=== PATIENT | male | born 1955 | race Caucasian/White ===

== ENCOUNTER 2018-11-12 19:15 | Emergency (ER) | payer OTHER ==
[~2018-11-12] VITALS: Ht 193 cm; Wt 113.4 kg
--- NOTE | 2018-11-12 21:02 | NUR ---
I WAS CALLED IN AT THE OF THIS PT TO HELP SORT OUT PROCEDURE FOR NOTIFYING NEXT OF [facility]. THIS PT WAS INMATE AT [facility], SO I SUGGESTED WE FIND OUT THEIR POLICY BEFORE MOVING ON. THEY SAID IT IS SOP FOR THEM TO DO NOTIFICATION. OFFICERS WHO CAME TO ESCORT INMATE SAID THEIR CAPT. WAS WORKING ON THAT. 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 HE TOLD US TO RELEASE BODY TO [facility]. I CONTACTED [facility], CARRIED PASSAGE QUILT TO ED, AND AM WAITING ON [facility] TO ARRIVE.
== END 2018-11-12 21:33 ==
LOC: ED 19:15
DX: I46.9 Cardiac arrest, cause unspecified (principal)
CPT/HCPCS: 99285